=== PATIENT | female | born 1995 ===

== ENCOUNTER 2019-01-06 16:01 | Emergency (ER) | payer SELFPAY ==
--- NOTE | 2019-01-06 16:04 | Emergency Department Report ---
Blank Doc - Documentation Documentation: This is a 23-year-old female that presents with vaginal bleeding. Denies any pelvic pain. Stated is about 10 weeks . This initial assessment/diagnostic orders/clinical plan/treatment(s) is/are subject to change based on patient's health status, clinical progression and re- assessment by fellow clinical providers in the ED. Further treatment and workup at subsequent clinical providers discretion. Patient/guardians urged not to elope from the ED as their condition may be serious if not clinically assessed and managed. Initial orders include: 1- Patient sent to [facility] for further evaluation and treatment 2- labs 3- US OB
[2019-01-06 16:06] VITALS: BP 128/79
[2019-01-06 16:21] LABS: Basophils # (Auto) 0.1 K/mm3 (0.0-0.1); Basophils % (Auto) 0.8 % (0.0-1.8); Eosinophils # (Auto) 0.1 K/mm3 (0.0-0.4); Hematocrit 38.3 % (30.3-42.9); Lymphocytes # (Auto) 1.5 K/mm3 (1.2-5.4); Lymphocytes % (Auto) 21.2 % (13.4-35.0); Mean Corpuscular HGB Conc 34 % (30-34); Mean Corpuscular Volume 83 fl (79-97); Monocytes # (Auto) 0.6 K/mm3 (0.0-0.8); Monocytes % (Auto) 7.8 % (0.0-7.3); Platelet Count 204 K/mm3 (140-440); Red Blood Count 4.59 M/mm3 (3.65-5.03); Red Cell Distribution Width 14.1 % (13.2-15.2)
--- NOTE | 2019-01-06 18:35 | Ultrasound Report ---
ULTRASOUND OBSTETRIC Indication: vaginal bleeding Findings: There is a single, living intrauterine . [place]-rump length = 3.5 cm = 10 weeks, 3 day(s). heart rate is 171 beats per minute. There is a small 2.5 cm subchorionic hemorrhage. There is a lso a 1.5 cm fibroid in the posterior uterine myometrium. The ovaries are normal. There is no free fluid. Impression: Single, living intrauterine with estimated sonographic age of 10 weeks, 3 day(s). Small 2.5 cm subchorionic hemorrhage. Signer Name: Sadiq Lopez MD Signed: 01/06/2019 6:31 PM Workstation Name: [id number]
[2019-01-06 19:40] LABS: Bilirubin,Urine NEG (Negative); Blood,Urine LG (Negative); Color,Urine Straw (Yellow); Protein,Urine <15 mg/dL mg/dL (Negative); Urobilinogen,Urine < 2.0 mg/dL (<2.0)
== END 2019-01-06 20:00 ==
LOC: ED 16:01
DX: O20.9 Hemorrhage in early pregnancy, unspecified (principal); Z3A.09 9 weeks gestation of pregnancy; Z53.21 Procedure and treatment not carried out due to patient leaving prior to being seen by health care provider
CPT/HCPCS: 36415; 76801; 76817; 81001; 84702; 85025; 86850; 86900; 86901